=== PATIENT | male | born 1995 | race African-American/Black ===

== ENCOUNTER 2021-11-29 15:24 | Inpatient (IN) ==
[2021-11-29] MEDS ORDERED: LACTATED RINGERS 1,000 ML IV STA (15:29)
[2021-11-29] MEDS ORDERED: DIPH/TET/ACEL PERT BOOSTER VACCINE 0.5 ML VIAL IM ONE (15:30)
[2021-11-29] MEDS ORDERED: ceFAZolin 2,000 MG/50 ML DUPLEX IV ONE (15:31)
[2021-11-29 15:48] LABS: Basophils % 0.2 % (0.0-0.8); Eosinophils % 0.2 % (0.00-10.9); Hematocrit 39.3 VOL% (42.0-52.0); Immature Granulocytes % 0.7 %; Immature Granulocytes Absolute 0.08 #; Lymphocytes # 3.4 10*3/uL (1.4-4.0); Mean Corpuscular HGB Conc 33.1 GM/DL (32-36); Mean Corpuscular Volume 102.3 FL (87-102); Monocytes % 8.6 % (1.7-12.7); Neutrophils % 62.3 % (38.7-73.9); Platelet Count 363 T/CUMM (130-400); Red Blood Count 3.84 MC/CUMM (3.8-5.5); Red Cell Distribution Width 10.9 % (9.3-17.3)
[2021-11-29 16:02] LABS: INR 1.1; PT Patient Result 11.7 SECS (10.5-12.0); Partial Thromboplastin Time 26.6 SECS (23.8-32.1)
[2021-11-29] MEDS ORDERED: ERTAPENEM 1,000 MG in SODIUM CHLORIDE 0.9% 100 ML IV ONE (16:03)
[2021-11-29 16:11] LABS: Alanine Aminotransferase 27 U/L (16-61); Albumin 3.3 G/DL (3.4-5.0); Alkaline Phosphatase 42 U/L (45-117); Aspartate Amino Transferase 21 U/L (0-37); Blood Urea Nitrogen 14 MG/DL (7-18); Calcium 9.1 MG/DL (8.5-10.1); Carbon Dioxide 23 MMOL/L (21-32); Glucose 137 MG/DL (74-106); Osmolality,Calculated 281.4 MOS/KG (273-304); Potassium 2.7 MMOL/L (3.5-5.1); Sodium 140 MMOL/L (136-145); Total Protein 7.4 G/DL (6.4-8.2)
[2021-11-29 16:14] LABS: Estimated Glom Filtration Rate 0 ML/MIN
[2021-11-29 16:35] LABS: Bacteria,Urine Occasional /HPF (Few); Mucus,Urine Many /LPF (Occasional); RBC,Urine 1 /HPF (0-4)
[2021-11-29 16:36] LABS: Bilirubin,Urine Negative (Negative); Blood, Urine Trace mg/dL (Negative); Glucose,Urine (UA) Negative (Negative); Ketones,Urine Negative (Negative); Nitrite,Urine Negative (Negative); Protein,Urine 30 mg/dL (Negative); Urine Appearance Clear (Clear); Urine Color Yellow (Yellow); Urine Urobilinogen 0.2 eU/dL (<2.0)
[2021-11-29] MEDS ORDERED: propofoL 200 MG/20 ML VIAL IV ONE (16:49)
[2021-11-29] MEDS ORDERED: ROCURONIUM 50 MG/5 ML VIAL IV ONE (16:49)
[2021-11-29] MEDS ORDERED: LIDOCAINE 2% 5 ML VIAL ONE (16:49)
[2021-11-29] MEDS ORDERED: SUCCINYLCHOLINE 200 MG/10 ML VIAL ONE (16:49)
[2021-11-29 16:50] LABS: Barbiturates Screen,Urine Negative (Negative); Benzodiazepines Screen,Urine Negative (Negative); Cannabinoid Screen,Urine Positive (Negative); Opiate Screen,Urine Negative (Negative); Phencyclidine Screen,Urine Negative (Negative)
[2021-11-29] MEDS ORDERED: fentaNYL 100 MCG/2 ML VIAL ONE (16:51)
[2021-11-29] MEDS ORDERED: SEVOFLURANE 1 UNIT/15 MINUTE INH ONE ×2 (16:54→19:19)
[2021-11-29] MEDS ORDERED: LACTATED RINGERS 1,000 ML IV ONE ×2 (17:31→18:01)
[2021-11-29] MEDS ORDERED: PHENYLEPHRINE 1 MG/10 ML SYRINGE IV ONE (17:41)
[2021-11-29 17:59] LABS: Hemoglobin 11.2 GM/DL (14.0-18.0)
[2021-11-29] MEDS ORDERED: PHENYLEPHRINE 10 MG/1 ML VIAL IV ONE (18:05)
[2021-11-29] MEDS ORDERED: SODIUM CHLORIDE 0.9% 250 ML IV ONE (18:08)
[2021-11-29] MEDS ORDERED: NEOSTIGMINE 10 MG/10 ML VIAL ONE (18:37)
[2021-11-29] MEDS ORDERED: GLYCOPYRROLATE 0.4 MG/2 ML VIAL ONE (18:37)
[2021-11-29] MEDS ORDERED: DEXMEDETOMIDINE 200 MCG/2 ML VIAL ONE (18:38)
[2021-11-29] MEDS ORDERED: ACETAMINOPHEN 325 MG TABLET PO PRN (18:55)
[2021-11-29] MEDS: LACTATED RINGERS 1,000 ML IV SCH (19:21)
[2021-11-29] MEDS: HYDROmorphone 1 MG/1 ML SYRINGE IV PRN ×2 (20:16→22:27)
[2021-11-29] MEDS: PIPERACILLIN/TAZOBACTAM 3,375 MG in SODIUM CHLORIDE 0.9% 100 ML IV SCH (20:21)
[2021-11-29] MEDS: POTASSIUM CHLORIDE RIDER 10 MEQ/100 ML PREMIX IV PRN ×2 (22:50→23:55)
[2021-11-30] MEDS: HYDROmorphone 1 MG/1 ML SYRINGE IV PRN ×7 (00:36→23:14)
[2021-11-30 00:47] LABS: Calcium 7.6 MG/DL (8.5-10.1); Osmolality,Calculated 279.4 MOS/KG (273-304)
[2021-11-30] MEDS: ONDANSETRON 4 MG/2 ML VIAL IV PRN ×2 (00:50→05:43)
[2021-11-30 00:52] LABS: Basophils % 0.1 % (0.0-0.8); Hematocrit 33.4 VOL% (42.0-52.0); Hemoglobin 11.3 GM/DL (14.0-18.0); Immature Granulocytes % 0.2 %; Immature Granulocytes Absolute 0.02 #; Lymphocytes # 0.5 10*3/uL (1.4-4.0); Lymphocytes % 4.6 % (21.2-54.2); Mean Corpuscular HGB Conc 33.8 GM/DL (32-36); Mean Corpuscular Volume 100.3 FL (87-102); Mean Platelet Volume 9.7 FL (9.6-12.0); Monocytes % 6.1 % (1.7-12.7); Red Blood Count 3.33 MC/CUMM (3.8-5.5); Red Cell Distribution Width 10.9 % (9.3-17.3); White Blood Count 9.9 T/CUMM (4-12)
[2021-11-30 00:56] LABS: Platelet Count 278 T/CUMM (130-400)
[2021-11-30] MEDS: POTASSIUM CHLORIDE RIDER 10 MEQ/100 ML PREMIX IV PRN (01:06)
[2021-11-30 01:46] LABS: Band Neutrophils 13 % (0-10); Lymphocytes 5 % (20-55); Metamyelocytes 5 %; Myelocytes 1 %; Segmented Neutrophils 67 % (50-85); Total Cells Counted 100
[2021-11-30 01:47] LABS: Hypochromia 2+
[2021-11-30 01:48] LABS: Platelet Estimate Normal
[2021-11-30] MEDS: PIPERACILLIN/TAZOBACTAM 3,375 MG in SODIUM CHLORIDE 0.9% 100 ML IV SCH ×3 (04:01→20:33)
[2021-11-30] MEDS: LACTATED RINGERS 1,000 ML IV SCH ×3 (04:01→21:34)
[2021-11-30] MEDS: PANTOPRAZOLE 40 MG TABLET PO SCH (08:44)
[2021-12-01] MEDS: PIPERACILLIN/TAZOBACTAM 3,375 MG in SODIUM CHLORIDE 0.9% 100 ML IV SCH ×3 (03:14→19:34)
[2021-12-01] MEDS: HYDROmorphone 1 MG/1 ML SYRINGE IV PRN ×6 (03:15→21:54)
[2021-12-01] MEDS: LACTATED RINGERS 1,000 ML IV SCH ×3 (03:18→19:33)
[2021-12-01] MEDS: PANTOPRAZOLE 40 MG TABLET PO SCH (12:18)
[2021-12-01] MEDS: PANTOPRAZOLE 40 MG VIAL IV SCH (12:37)
[2021-12-02] MEDS: HYDROmorphone 1 MG/1 ML SYRINGE IV PRN ×8 (00:29→23:48)
[2021-12-02] MEDS: LACTATED RINGERS 1,000 ML IV SCH ×4 (03:27→19:55)
[2021-12-02] MEDS: PIPERACILLIN/TAZOBACTAM 3,375 MG in SODIUM CHLORIDE 0.9% 100 ML IV SCH ×3 (03:28→20:11)
[2021-12-02 08:21] LABS: Basophils % 0.2 % (0.0-0.8); Eosinophils # 0.1 10*3/uL (0.0-0.87); Eosinophils % 0.7 % (0.00-10.9); Hematocrit 31.5 VOL% (42.0-52.0); Hemoglobin 10.5 GM/DL (14.0-18.0); Immature Granulocytes % 0.5 %; Immature Granulocytes Absolute 0.06 #; Lymphocytes % 7.7 % (21.2-54.2); Mean Corpuscular HGB Conc 33.3 GM/DL (32-36); Mean Corpuscular Volume 100.3 FL (87-102); Mean Platelet Volume 10.2 FL (9.6-12.0); Monocytes % 6.4 % (1.7-12.7); Neutrophils % 84.5 % (38.7-73.9); Platelet Count 261 T/CUMM (130-400); Red Blood Count 3.14 MC/CUMM (3.8-5.5); Red Cell Distribution Width 10.9 % (9.3-17.3); White Blood Count 12.9 T/CUMM (4-12)
[2021-12-02] MEDS: PANTOPRAZOLE 40 MG VIAL IV SCH (09:36)
[2021-12-02] MEDS: ONDANSETRON 4 MG/2 ML VIAL IV PRN (17:32)
[2021-12-03] MEDS: HYDROmorphone 1 MG/1 ML SYRINGE IV PRN ×4 (01:50→23:17)
[2021-12-03] MEDS: PIPERACILLIN/TAZOBACTAM 3,375 MG in SODIUM CHLORIDE 0.9% 100 ML IV SCH ×3 (04:04→19:41)
[2021-12-03 06:46] LABS: Basophils % 0.3 % (0.0-0.8); Eosinophils # 0.2 10*3/uL (0.0-0.87); Hematocrit 29.8 VOL% (42.0-52.0); Hemoglobin 10.5 GM/DL (14.0-18.0); Immature Granulocytes % 0.4 %; Immature Granulocytes Absolute 0.04 #; Lymphocytes # 1.4 10*3/uL (1.4-4.0); Mean Corpuscular HGB Conc 35.2 GM/DL (32-36); Mean Corpuscular Volume 96.4 FL (87-102); Mean Platelet Volume 10.3 FL (9.6-12.0); Monocytes % 8.7 % (1.7-12.7); Neutrophils % 75.6 % (38.7-73.9); Platelet Count 270 T/CUMM (130-400); Red Blood Count 3.09 MC/CUMM (3.8-5.5); Red Cell Distribution Width 10.8 % (9.3-17.3); White Blood Count 10.7 T/CUMM (4-12)
[2021-12-03 07:00] LABS: Calcium 8.6 MG/DL (8.5-10.1); Osmolality,Calculated 272.7 MOS/KG (273-304); Potassium 3.3 MMOL/L (3.5-5.1)
[2021-12-03] MEDS ORDERED: MAGNESIUM HYDROXIDE SUSP 30 ML UDCUP PO PRN (09:30)
[2021-12-03] MEDS: LACTATED RINGERS 1,000 ML IV SCH (09:31)
[2021-12-03] MEDS: PANTOPRAZOLE 40 MG VIAL IV SCH (09:31)
[2021-12-04] MEDS: LACTATED RINGERS 1,000 ML IV SCH ×3 (01:25→20:26)
[2021-12-04] MEDS: HYDROmorphone 1 MG/1 ML SYRINGE IV PRN ×7 (03:09→22:49)
[2021-12-04] MEDS: PIPERACILLIN/TAZOBACTAM 3,375 MG in SODIUM CHLORIDE 0.9% 100 ML IV SCH ×2 (04:02→12:33)
[2021-12-04] MEDS: PANTOPRAZOLE 40 MG VIAL IV SCH (08:16)
[2021-12-04] MEDS: POTASSIUM CHLORIDE RIDER 10 MEQ/100 ML PREMIX IV PRN ×4 (08:16→22:51)
[2021-12-05] MEDS: HYDROmorphone 1 MG/1 ML SYRINGE IV PRN ×8 (00:37→22:30)
[2021-12-05] MEDS: PANTOPRAZOLE 40 MG VIAL IV SCH (08:34)
[2021-12-05] MEDS: POTASSIUM CHLORIDE RIDER 10 MEQ/100 ML PREMIX IV PRN ×4 (08:36→23:50)
[2021-12-06] MEDS: HYDROmorphone 1 MG/1 ML SYRINGE IV PRN ×4 (03:34→18:11)
[2021-12-06] MEDS: PANTOPRAZOLE 40 MG VIAL IV SCH (09:16)
[2021-12-06] MEDS: ONDANSETRON 4 MG/2 ML VIAL IV PRN ×2 (11:59→18:11)
[2021-12-07] MEDS: PANTOPRAZOLE 40 MG VIAL IV SCH (08:36)
[2021-12-07] MEDS: ONDANSETRON 4 MG/2 ML VIAL IV PRN (15:56)
[2021-12-07] MEDS ORDERED: MELATONIN 3 MG TABLET PO PRN (15:57)
[2021-12-08] MEDS: PANTOPRAZOLE 40 MG VIAL IV SCH (08:10)
[2021-12-08 15:57] VITALS: BP 120/75
== END 2021-12-08 18:16 | disposition home or self-care (01) | DRG 330 ==
LOC: N.ED 15:24 → N.CC 16:57 → N.3E 12-03 00:28
PROVIDERS: ADMIT Student in an Organized Health Care Education/Training Program; ATTEND Student in an Organized Health Care Education/Training Program